=== PATIENT | female | born 1980 | race Caucasian/White ===

== ENCOUNTER 2017-06-18 08:40 | Observation (INO) | payer OTHER ==
[~2017-06-18] VITALS: Ht 165.1 cm; Wt 66.7 kg
== END 2017-06-18 09:50 | disposition home or self-care (01) ==
LOC: SPU 08:40
PROVIDERS: ADMIT Obstetrics & Gynecology; ATTEND Obstetrics & Gynecology
DX: O99.89 Other specified diseases and conditions complicating pregnancy, childbirth and the puerperium (principal); M54.5 Low back pain; Z3A.20 20 weeks gestation of pregnancy; V89.2XXA Person injured in unspecified motor-vehicle accident, traffic, initial encounter
CPT/HCPCS: 81002; G0378

== ENCOUNTER 2017-06-18 15:28 | Observation (INO) | payer OTHER ==
[~2017-06-18] VITALS: Ht 165.1 cm; Wt 66.7 kg
== END 2017-06-18 17:40 | disposition home or self-care (01) ==
LOC: SPU 15:28
PROVIDERS: ADMIT Obstetrics & Gynecology; ATTEND Obstetrics & Gynecology
DX: O99.89 Other specified diseases and conditions complicating pregnancy, childbirth and the puerperium (principal); M54.9 Dorsalgia, unspecified; Z3A.20 20 weeks gestation of pregnancy
CPT/HCPCS: 76815; G0378; 81002-TC